=== PATIENT | female | born 1985 | race Caucasian/White ===

== ENCOUNTER 2017-06-06 11:02 | Day surgery (SDC) | payer MEDICAID ==
[~2017-06-06 11:02] MED LIST: Lactated Ringers 1,000 ML IV SCH; Sodium Chloride 0.9% 5 ML Syringe FLUSH PRN
[2017-06-06] MEDS ORDERED: Propofol 200 MG/20 ML SDV ONE (11:07)
[2017-06-06] MEDS ORDERED: Propofol 200 MG/20 ML SDV IV ONE (12:09)
--- NOTE | 2017-06-06 12:11 | PCM.PN ---
- General Info Date of Service: 06/06/17 - Review of Systems Systems Review Comment:: 32 y/o female with previously diagnosed SHOAIB now has continued rectal bleeding despite treatment. Referred for colonoscopy. She is medically stable to proceed with no recent significant changes to her health status. I have discussed the proposed colonoscopy with the patient. Risks such as bleeding and GI injury discussed and she agrees to proceed. Also question of removal of chest wall cyst. History and exam consistent with infected epidermal cyst which still has some inflammation around it. Will not excise at this time but advised that if lump persists after all the inflammation has resolved then will removed the cyst in the office under local anesthesia. - Patient Data Vitals - Most Recent: Last Vital Signs Temp 98.8 F 06/06/17 11:17 Pulse 84 06/06/17 11:17 Resp 18 06/06/17 11:17 BP 107/71 06/06/17 11:17 Pulse Ox 100 06/06/17 11:17 Weight - Most Recent: 59.421 kg Lab Results Last 24 Hours: Laboratory Results - last 24 hr 06/06/17 Range/Units 11:00 Urine HCG, Qual Negative (NEGATIVE) Med Orders - Current: Current Medications Lactated Ringer's (Ringers, Lactated) 1,000 mls @ 50 mls/hr IV ASDIRECTED AIDA Last Admin: 06/06/17 11:30 Dose: 50 mls/hr Sodium Chloride (Syrex Flush) 5 ml FLUSH Q8HR PRN PRN Reason: Keep Vein Open - Problem List Review Problem List Initiated/Reviewed/Updated: Yes - My Orders Last 24 Hours: My Active Orders 06/06/17 11:00 Patient to Empty Bladder [RC] ASDIRECTED Peripheral IV Care [RC] . DIRECTED Verify Patient Consent Obtain [RC] ASDIRECTED Lactated Ringers [Ringers, Lactated] 1,000 ml IV ASDIRECTED Sodium Chloride 0.9% [Syrex Flush] 5 ml FLUSH Q8HR PRN Peripheral IV Insertion Adult [OM.PC] Routine 06/06/17 Breakfast Nothing Per Oral Diet [DIET] - Assessment Assessment:: History of Ulcerative Colitis Rectal Bleeding - Plan Plan:: Colonoscopy
--- NOTE | 2017-06-06 12:58 | PCM.OPNOTE ---
- General Post-Op/Procedure Note Date of Surgery/Procedure: 06/06/17 Operative Procedure(s): Colonoscopy with Biopsy Findings: Severe inflammation of Left colon and Rectum consistent with Ulcerative colitis. Right colon appears normal Pre Op Diagnosis: Ulcerative Colitis Post-Op Diagnosis: Same Anesthesia Technique: MAC Primary Surgeon: Janusz Coker Pathology: Colon biopsies from several locations Output, Urine Amount: 0 EBL in mLs: 5 Complications: None Condition: Good
[2017-06-06 13:10] VITALS: BP 104/73
--- NOTE | 2017-06-06 23:14 | OR ---
DATE OF SURGERY: 06/06/2017 SURGEON: Janusz Coker MD REFERRING PHYSICIAN: Inez Lemus MD PREOPERATIVE DIAGNOSIS: Ulcerative colitis. POSTOPERATIVE DIAGNOSIS: Ulcerative colitis. OPERATION PERFORMED: Colonoscopy with biopsy. INDICATIONS FOR SURGERY: This 32-year-old female with a known diagnosis of ulcerative colitis has been having some rectal bleeding and loose stools. These symptoms are despite medication, and she comes for colonoscopy. FINDINGS: The patient's rectum, sigmoid, and descending colon are acutely inflamed down to the dentate line. There are ulcerations, friable mucosa, and thickened folds consistent with ulcerative colitis. The patient's right colon and proximal transverse colon appear normal without visible signs of inflammation. No polyps or other lesions were seen during the exam. DESCRIPTION OF PROCEDURE: The patient was taken to the operating room. She was given intravenous sedation and with her in the left lateral decubitus position, digital rectal exam was performed. No rectal masses were noted. The Olympus colonoscope was inserted into the rectum and carefully the scope was advanced under direct visualization through the left transverse and right colon until the cecum was reached. Cecal acquisition was confirmed by noting the normal internal cecal anatomy including the appendiceal orifice and ileocecal valve. The light was also noted to transilluminate the abdominal wall in the right lower quadrant. After examining the cecum, the scope was slowly withdrawn sequentially re-examining the colonic segments. Random biopsies were taken during withdrawal of the scope. These biopsies were taken from the right colon. Biopsies were also taken from the descending colon, sigmoid colon, and rectum. After the exam had been completed and with no signs of any complicating process, the scope was removed and the patient was taken from the operating room in satisfactory condition. ESTIMATED BLOOD LOSS: 5 mL. COMPLICATIONS: None. PROGNOSIS: Good. /[id number]/MODL
== END 2017-06-06 13:50 ==
LOC: KA.SDS 11:02
PROVIDERS: ATTEND Surgery
DX: K52.9 Noninfective gastroenteritis and colitis, unspecified (principal); Z79.899 Other long term (current) drug therapy; Z98.890 Other specified postprocedural states; Z78.9 Other specified health status
CPT/HCPCS: 45380; 81025; J2704; J7120

== ENCOUNTER 2018-02-11 03:55 | Emergency (ER) | payer MEDICAID ==
[2018-02-11] MEDS ORDERED: Promethazine 12.5 MG in Sodium Chloride 0.9% 50 ML IV PRN (04:06)
[2018-02-11] MEDS ORDERED: Sodium Chloride 0.9% 1,000 ML IV ONE (04:07)
[2018-02-11 04:50] VITALS: BP 115/60
[2018-02-11] MEDS ORDERED: Promethazine 6.25 MG/5 ML Liquid 10 ML UD Cup PO PRN (05:25)
--- NOTE | 2018-02-11 05:29 | EDM.PDOC ---
ED HPI GENERAL MEDICAL PROBLEM - General Chief Complaint: Gastrointestinal Problem Stated Complaint: VOMITING Time Seen by Provider: 02/11/18 04:45 Source of Information: Reports: Patient, Family, RN History Limitations: Reports: No Limitations - History of Present Illness INITIAL COMMENTS - FREE TEXT/NARRATIVE: Pleasant 33-year-old female presents emergency room early this this morning with complaints of nausea vomiting over the last 24 hours. She's been taking Zofran 4 mg without relief of the symptoms. She denies any fever or chills. She is been experiencing some diarrhea but this is not unusual for her colitis. She is currently taking prednisone for Achilles tendinitis. She was started on some recent new medication by her mold stamper for her colitis. She is not had an appetite and has not been able to keep much down for food or for hydration. She denies significant amount of abdominal pain. No recent infections or illnesses presented. IV was placed she was started on 1 L of fluids and given Phenergan 12.5 mg upon my arrival. She feels the nausea has essentially resolved. She was resting and states that she feels much better. Onset Date: 01/27/18 Onset Time: 04:00 Duration: Hour(s):, Constant Location: Reports: Abdomen Quality: Reports: Ache Severity: Moderate Improves with: Reports: None. Denies: Medication (zofran) Worsens with: Reports: None Associated Symptoms: Reports: Nausea/Vomiting, Other (Diarrhea) Treatments [facility]: Reports: Other Medication(s) (Zofran) - Related Data Allergies Allergy/AdvReac Type Severity Reaction Status Date / Time No Known Drug Allergies Allergy Other Verified 02/11/18 03:57 Home Meds: Home Meds Multivitamin [Multiple Vitamins] 1 tab PO DAILY 05/31/17 [History] Mesalamine [Lialda] 4.8 gm PO 1800 02/11/18 [History] Ondansetron HCl [Ondansetron] 4 mg PO Q6H PRN 02/11/18 [History] azaTHIOprine [Azathioprine] 112.5 mg PO DAILY 02/11/18 [History] predniSONE [Prednisone] 60 mg PO DAILY 02/11/18 [History] Past Medical History HEENT History: Reports: Impaired Vision Gastrointestinal History: Reports: Other (See Below) Other Gastrointestinal History: ulcerative colitis 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 Denies: Fever, Chills, Diaphoresis HEENT: Reports: No Symptoms Respiratory: Reports: No Symptoms Cardiovascular: Reports: No Symptoms Endocrine: Reports: No Symptoms GI/Abdominal: Reports: Abdominal Pain, Anorexia, Diarrhea, Nausea, Vomiting. Denies: Hematemesis : Reports: No Symptoms Musculoskeletal: Reports: No Symptoms Skin: Reports: No Symptoms Neurological: Reports: No Symptoms Psychiatric: Reports: No Symptoms Hematologic/Lymphatic: Reports: No Symptoms Immunologic: Reports: No Symptoms ED EXAM, GI/ABD - Physical Exam Exam: See Below Exam Limited By: No Limitations General Appearance: Alert, No Apparent Distress, Thin Throat/Mouth: Normal Voice, No Airway Compromise Respiratory/Chest: Lungs Clear, Normal Breath Sounds Cardiovascular: Regular Rate, Rhythm GI/Abdominal Exam: Normal Bowel Sounds, Soft, Non-Tender, No Organomegaly, No Distention Extremities: Normal Inspection, Normal Range of Motion, No Pedal Edema, Other ( Mild right Achilles tenderness. Good push off strength. Achilles is intact) Neurological: Alert, Oriented, Normal Cognition, Normal Gait Psychiatric: Normal Affect, Normal Mood Skin Exam: Warm, Dry, Intact, Normal Color, No Rash Lymphatic: No Adenopathy Course - Vital Signs Last Recorded V/S: Last Vital Signs Temp 98.4 F 02/11/18 04:49 Pulse 75 02/11/18 04:49 Resp 18 02/11/18 04:49 BP 115/60 02/11/18 04:49 Pulse Ox 98 02/11/18 04:49 - Orders/Labs/Meds Orders: Active Orders 24 hr Category Date Time Status Promethazine [Phenergan] 12.5 mg Med 02/11/18 04:06 Active Sodium Chloride 0.9% [Normal Saline] 50 ml IV Q6H Medication Orders Promethazine HCl 12.5 mg/ (Sodium Chloride) 50.5 mls @ 200 mls/hr IV Q6H PRN PRN Reason: Nausea/Vomiting Last Admin: 02/11/18 04:30 Dose: 200 mls/hr Meds: Medications Generic Name Dose Route Start Last Admin Trade Name Anderson PRN Reason Stop Dose Admin Promethazine HCl 12.5 mg/ 50.5 mls @ 200 mls/hr 02/11/18 04:06 02/11/18 04:30 Sodium Chloride IV 200 mls/hr Q6H PRN Administration Nausea/Vomiting Discontinued Medications Generic Name Dose Route Start Last Admin Trade Name Anderson PRN Reason Stop Dose Admin Sodium Chloride 1,000 mls @ 1,500 mls/hr 02/11/18 04:07 02/11/18 04:30 Normal Saline IV 02/11/18 04:46 1,500 mls/hr .BOLUS ONE Administration - Re-Assessments/Exams Free Text/Narrative Re-Assessment/Exam: 02/11/18 05:34 1 L normal saline fluids was given, 12.5 mg IV Phenergan. Nausea is resolved no further vomiting. Patient states that she feels considerably better with the fluids and nausea medication. Patient feels that she could manage at home with how she feels now. Departure - Departure Time of Disposition: 05:35 Disposition: Home, Self-Care 01 Condition: Fair Clinical Impression: Nausea and vomiting in adult patient, Abdominal pain - Discharge Information Instructions: Gastritis, Adult, [id number], Colitis Forms: ED Department Discharge Additional Instructions: 1. Continue with oral hydration. Rest. 2. Phenergan 12.5mg q4-6 hrs for nausea/vomiting 3. Return to ER if symptoms persist. 4. F/u with Dr. Manzano next week for check-up - My Orders Last 24 Hours: My Active Orders 02/11/18 04:06 Promethazine [Phenergan] 12.5 mg Sodium Chloride 0.9% [Normal Saline] 50 ml IV Q6H - Assessment/Plan Last 24 Hours: My Active Orders 02/11/18 04:06 Promethazine [Phenergan] 12.5 mg Sodium Chloride 0.9% [Normal Saline] 50 ml IV Q6H Assessment:: Nausea and vomiting, resolved History of colitis Right Achilles tendinitis, currently on prednisone. Plan: Patient is feeling significantly better at this time with 1 L of fluids and IV Phenergan 12.5 mg. She feels a nausea and vomiting is resolved. She is not experiencing any peritoneal signs. She is managing her colitis with her current medications and recent follow-up with a mold stamper. She is currently on a prednisone for Achilles tendinitis which may also help benefit for her current colitis. She feels comfortable enough to go home and will continue with oral hydration and rest throughout the weekend. We'll discharge her home with liquid Phenergan. If her nausea and vomiting should return and is not managed I' m encouraged follow-up in the emergency room. She will plan on following up with her primary care Dr. Inez Manzano next week. Patient was discharged home with her .
== END 2018-02-11 05:25 | disposition home or self-care (01) ==
LOC: KA.ED 03:55
DX: R11.2 Nausea with vomiting, unspecified (principal); R10.9 Unspecified abdominal pain; M76.61 Achilles tendinitis, right leg; Z79.899 Other long term (current) drug therapy; F32.9 Major depressive disorder, single episode, unspecified; F41.9 Anxiety disorder, unspecified
CPT/HCPCS: 96374; 99283; A9270; J2550; J7030; J7050

== ENCOUNTER 2018-02-12 00:27 | Observation (INO) | payer MEDICAID ==
[2018-02-12] MEDS ORDERED: Morphine 2 MG/ML Syringe IVPUSH ONE (00:53)
[2018-02-12] MEDS ORDERED: Sodium Chloride 0.9% 1,000 ML IV ONE (01:15)
[2018-02-12] MEDS: Promethazine 12.5 MG in Sodium Chloride 0.9% 50 ML IV PRN ×2 (01:22→02:34)
[2018-02-12 01:33] LABS: CHLORIDE,CL 105 mmol/L (98-115); SODIUM,NA 142 mmol/L (136-145)
[2018-02-12] MEDS ORDERED: Iopamidol 612 MG/ML 75 ML Bottle IV ONE (01:33)
[2018-02-12] MEDS ORDERED: Sodium Chloride 0.9% 50 ML IV SCH (01:45)
--- NOTE | 2018-02-12 01:52 | EDM.PDOC ---
ED HPI GENERAL MEDICAL PROBLEM - General Chief Complaint: Gastrointestinal Problem Stated Complaint: n/v/abd pain Time Seen by Provider: 02/12/18 00:30 Source of Information: Reports: Patient, Family History Limitations: Reports: No Limitations - History of Present Illness INITIAL COMMENTS - FREE TEXT/NARRATIVE: 33-year-old female presents to the emergency room early this morning with increasing complaints of pain and cramping in her abdomen. She is also having persistent nausea and recurrence of vomiting. This is been going on now for 3 days. 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 Her nausea began to recur at approximately 2:00 this afternoon and persisted throughout the day into the evening. She continued to notice of pain discomfort cramping in her abdomen. She had a recurrent episode of vomiting early this morning and therefore is brought back in by her for further evaluation. She is currently taking 60 mg of prednisone and has a history of a colitis. Onset: Gradual Onset Date: 02/12/18 Onset Time: 14:00 Duration: Day(s):, Recurring Location: Reports: Abdomen Quality: Reports: Ache Severity: Severe Improves with: Reports: Medication, Rest Associated Symptoms: Reports: Loss of Appetite, Nausea/Vomiting Treatments SIEVE MAKER: Reports: Other Medication(s) (phenergan) Abdomen Pain Score (Numeric/FACES): 7 - Related Data Allergies Allergy/AdvReac Type Severity Reaction Status Date / Time No Known Drug Allergies Allergy Other Verified 02/12/18 00:36 Home Meds: Home Meds Multivitamin [Multiple Vitamins] 1 tab PO DAILY 05/31/17 [History] Mesalamine [Lialda] 4.8 gm PO 1800 02/11/18 [History] Ondansetron HCl [Ondansetron] 4 mg PO Q6H PRN 02/11/18 [History] azaTHIOprine [Azathioprine] 112.5 mg PO DAILY 02/11/18 [History] predniSONE [Prednisone] 60 mg PO DAILY 02/11/18 [History] Citalopram [Citalopram HBr] 20 mg PO DAILY 02/12/18 [History] Past Medical History HEENT History: Reports: Impaired Vision Gastrointestinal History: Reports: Other (See Below) Other Gastrointestinal History: ulcerative colitis 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 Denies: Chills HEENT: Reports: No Symptoms Respiratory: Reports: No Symptoms Cardiovascular: Reports: No Symptoms Endocrine: Reports: No Symptoms GI/Abdominal: Reports: Abdominal Pain, Bloody Stool, Nausea, Vomiting : Reports: Hematuria (menstral bleeding) Musculoskeletal: Reports: Leg Pain (achilles pain) Skin: Reports: No Symptoms Neurological: Reports: No Symptoms ED EXAM, GI/ABD - Physical Exam Exam: See Below Exam Limited By: No Limitations General Appearance: Alert, Mild Distress, Thin Head: Atraumatic Neck: Normal Inspection Respiratory/Chest: Lungs Clear Cardiovascular: Regular Rate, Rhythm GI/Abdominal Exam: Normal Bowel Sounds, Soft, Tender (mild general). No: Distended, Guarding, Rigid, Rebound Back Exam: Normal Inspection Extremities: Normal Inspection, Normal Range of Motion, No Pedal Edema, Other ( tender right achilles pain) Neurological: Alert, Oriented, Normal Cognition, No Motor/Sensory Deficits Psychiatric: Normal Affect, Depressed Mood Skin Exam: Warm, Dry, Intact, Normal Color, No Rash Lymphatic: No Adenopathy Course - Vital Signs Last Recorded V/S: Last Vital Signs Temp 99.4 F 02/12/18 00:31 Pulse 84 02/12/18 00:31 Resp 16 02/12/18 00:31 BP 112/66 02/12/18 00:31 Pulse Ox 100 02/12/18 00:31 - Orders/Labs/Meds Orders: Active Orders 24 hr Category Date Time Status Patient Status [ADT] Routine ADT 02/12/18 03:07 Ordered May Shower [RC] ASDIRECTED Care 02/12/18 03:07 Ordered Up With Assistance [RC] ASDIRECTED Care 02/12/18 03:07 Ordered Vital Signs [RC] Q4H Care 02/12/18 03:07 Ordered Regular Diet [DIET] Diet 02/12/18 Breakfast Ordered Abdomen Pelvis w Cont [CT] Stat Exams 02/12/18 00:55 Taken Acetaminophen [Tylenol] Med 02/12/18 03:07 Ordered 650 mg PO Q4H PRN Citalopram [Celexa] Med 02/12/18 09:00 Ordered 20 mg PO DAILY Docusate Sodium [Colace] Med 02/12/18 03:07 Ordered 100 mg PO DAILY PRN HYDROmorphone [Dilaudid] Med 02/12/18 03:12 Ordered 1 mg IVPUSH Q4H PRN Magnesium Hydroxide [Milk of Magnesia] Med 02/12/18 03:07 Ordered 30 ml PO BID PRN Mesalamine [Lialda] Med 02/12/18 18:00 Ordered 4.8 gm PO 1800 Multivitamin [Multiple Vitamins] Med 02/12/18 09:00 Ordered 1 tab PO DAILY Naloxone [Narcan] Med 02/12/18 03:12 Ordered 0.4 mg IVPUSH ONETIME PRN Ondansetron HCl Med 02/12/18 03:10 Ordered 4 mg PO Q6H PRN Ondansetron [Zofran] Med 02/12/18 03:14 Ordered 4 mg IVPUSH Q4H PRN Promethazine [Phenergan] 12.5 mg Med 02/12/18 00:53 Active Sodium Chloride 0.9% [Normal Saline] 50 ml IV Q6H Sodium Chloride 0.9% [Normal Saline] 50 ml Med 02/12/18 01:45 Active IV ASDIRECTED azaTHIOprine [Imuran] Med 02/12/18 09:00 Ordered 112.5 mg PO DAILY predniSONE Med 02/12/18 09:00 Ordered 60 mg PO DAILY Medication Orders Acetaminophen (Tylenol) 650 mg PO Q4H PRN PRN Reason: analgesia/fever Azathioprine (Imuran) 112.5 mg PO DAILY [facility] Citalopram Hydrobromide (Celexa) 20 mg PO DAILY AIDA Docusate Sodium (Colace) 100 mg PO DAILY PRN PRN Reason: Constipation Hydromorphone HCl (Dilaudid) 1 mg IVPUSH Q4H PRN PRN Reason: Pain Promethazine HCl 12.5 mg/ (Sodium Chloride) 50.5 mls @ 200 mls/hr IV Q6H PRN PRN Reason: Nausea/Vomiting Last Admin: 02/12/18 02:34 Dose: 200 mls/hr Admin: 02/12/18 01:22 Dose: 200 mls/hr Sodium Chloride (Normal Saline) 50 mls @ 200 mls/hr IV ASDIRECTED [facility] Last Admin: 02/12/18 02:22 Dose: 200 mls/hr Magnesium Hydroxide (Milk Of Magnesia) 30 ml PO BID PRN PRN Reason: Constipation Naloxone HCl (Narcan) 0.4 mg IVPUSH ONETIME PRN PRN Reason: Respiratory Depression Non-Formulary Medication (Mesalamine [Lialda]) 4.8 gm PO 1800 [facility] Non-Formulary Medication (Multivitamin [Multiple Vitamins]) 1 tab PO DAILY [facility] Non-Formulary Medication (Ondansetron Hcl) 4 mg PO Q6H PRN PRN Reason: Nausea Ondansetron HCl (Zofran) 4 mg IVPUSH Q4H PRN PRN Reason: Nausea/Vomiting Prednisone (Prednisone) 60 mg PO DAILY [facility] Labs: Laboratory Tests 02/12/18 02/12/18 Range/Units 01:05 01:05 WBC 10.2 H (5.0-10.0) 10^3/uL RBC 4.33 (3.80-5.50) 10^6/uL Hgb 12.0 (12.0-16.0) g/dL Hct 36.0 L (37.0-47.0) % MCV 83.0 (82.0-92.0) fL MCH 27.7 (27.0-31.0) pg MCHC 33.3 (32.0-36.0) g/dL RDW 12.6 (11.5-14.5) % Plt Count 425 H D (150-300) 10^3/uL MPV 5.9 L (7.4-10.4) fL Neut % (Auto) 71.7 H (50.0-70.0) % Lymph % (Auto) 17.1 L (20.0-40.0) % [place] % (Auto) 9.1 H (2.0-8.0) % Eos % (Auto) 1.4 (1.0-3.0) % Baso % (Auto) 0.7 (0.0-1.0) % Neut # (Auto) 7.4 H (2.5-7.0) 10^3/uL Lymph # (Auto) 1.7 (1.0-4.0) 10^3/uL [place] # (Auto) 0.9 H (0.1-0.8) 10^3/uL Eos # (Auto) 0.1 (0.1-0.3) 10^3/uL Baso # (Auto) 0.1 (0.0-0.1) 10^3/uL Sodium 142 (136-145) mmol/L Potassium 3.4 (3.3-5.3) mmol/L Chloride 105 (98-115) mmol/L Carbon Dioxide 27.6 (21.0-32.0) mmol/L BUN 11 (6-25) mg/dL Creatinine 0.69 (0.51-1.17) mg/dL Est Cr Clr Drug Dosing 90.00 mL/min Estimated GFR (MDRD) > 60 mL/min Glucose 84 (70-110) mg/dL Calcium 8.8 (8.7-10.3) mg/dL HCG, Qual Negative (NEGATIVE) Meds: Medications Generic Name Dose Route Start Last Admin Trade Name Freq PRN Reason Stop Dose Admin Acetaminophen 650 mg 02/12/18 03:07 Tylenol PO Q4H PRN analgesia/fever Azathioprine 112.5 mg 02/12/18 09:00 Imuran PO DAILY [facility] Citalopram Hydrobromide 20 mg 02/12/18 09:00 Celexa PO DAILY A[facility] Docusate Sodium 100 mg 02/12/18 03:07 Colace PO DAILY PRN Constipation Hydromorphone HCl 1 mg 02/12/18 03:12 Dilaudid IVPUSH Q4H PRN Pain Promethazine HCl 12.5 mg/ 50.5 mls @ 200 mls/hr 02/12/18 00:53 02/12/18 02:34 Sodium Chloride IV 200 mls/hr Q6H PRN Administration Nausea/Vomiting Sodium Chloride 50 mls @ 200 mls/hr 02/12/18 01:45 02/12/18 02:22 Normal Saline IV 200 mls/hr ASDIRECTED AIDA Administration Magnesium Hydroxide 30 ml 02/12/18 03:07 Milk Of Magnesia PO BID PRN Constipation Naloxone HCl 0.4 mg 02/12/18 03:12 Narcan IVPUSH ONETIME PRN Respiratory Depression Non-Formulary Medication 4.8 gm 02/12/18 18:00 Mesalamine [Lialda] PO 1800 [facility] Non-Formulary Medication 1 tab 02/12/18 09:00 Multivitamin [Multiple Vitamins] PO DAILY [facility] Non-Formulary Medication 4 mg 02/12/18 03:10 Ondansetron Hcl PO Q6H PRN Nausea Ondansetron HCl 4 mg 02/12/18 03:14 Zofran IVPUSH Q4H PRN Nausea/Vomiting Prednisone 60 mg 02/12/18 09:00 Prednisone PO DAILY [facility] Discontinued Medications Generic Name Dose Route Start Last Admin Trade Name Freq PRN Reason Stop Dose Admin Hydromorphone HCl 2 mg 02/12/18 02:12 02/12/18 02:24 Dilaudid IVPUSH 02/12/18 02:13 2 mg ONETIME ONE Administration Sodium Chloride 1,000 mls @ 1,000 mls/hr 02/12/18 01:15 02/12/18 01:19 Normal Saline IV 02/12/18 02:14 1,000 mls/hr .BOLUS ONE Administration Iopamidol 75 ml 02/12/18 01:33 02/12/18 02:22 Isovue-300 (61%) IV 02/12/18 01:34 75 ml ONETIME ONE Administration Morphine Sulfate 2 mg 02/12/18 00:53 02/12/18 01:20 Morphine IVPUSH 02/12/18 00:54 2 mg ONETIME ONE Administration - Re-Assessments/Exams Free Text/Narrative Re-Assessment/Exam: 02/12/18 01:52 1 L normal saline running at this time. Patient was given 12.5 mg as of Phenergan. Patient was taken to CT scanner Departure - Departure Time of Disposition: 03:17 Disposition: Refer to Observation Condition: Fair Clinical Impression: Intractable abdominal pain, Colitis, nonspecific - Discharge Information Referrals: Inez Cisse MD [Primary Care Provider] - Forms: ED Department Discharge - Problem List Review Problem List Initiated/Reviewed/Updated: Yes - My Orders Last 24 Hours: My Active Orders 02/12/18 00:53 Promethazine [Phenergan] 12.5 mg Sodium Chloride 0.9% [Normal Saline] 50 ml IV Q6H 02/12/18 00:55 Abdomen Pelvis w Cont [CT] Stat 02/12/18 01:45 Sodium Chloride 0.9% [Normal Saline] 50 ml IV ASDIRECTED 02/12/18 03:07 Patient Status [ADT] Routine May Shower [RC] ASDIRECTED Up With Assistance [RC] ASDIRECTED Vital Signs [RC] Q4H Acetaminophen [Tylenol] 650 mg PO Q4H PRN Docusate Sodium [Colace] 100 mg PO DAILY PRN Magnesium Hydroxide [Milk of Magnesia] 30 ml PO BID PRN 02/12/18 03:10 Ondansetron HCl 4 mg PO Q6H PRN 02/12/18 03:12 HYDROmorphone [Dilaudid] 1 mg IVPUSH Q4H PRN Naloxone [Narcan] 0.4 mg IVPUSH ONETIME PRN 02/12/18 03:14 Ondansetron [Zofran] 4 mg IVPUSH Q4H PRN 02/12/18 09:00 Citalopram [Celexa] 20 mg PO DAILY Multivitamin [Multiple Vitamins] 1 tab PO DAILY azaTHIOprine [Imuran] 112.5 mg PO DAILY predniSONE 60 mg PO DAILY 02/12/18 18:00 Mesalamine [Lialda] 4.8 gm PO 1800 02/12/18 Breakfast Regular Diet [DIET] - Assessment/Plan Last 24 Hours: My Active Orders 02/12/18 00:53 Promethazine [Phenergan] 12.5 mg Sodium Chloride 0.9% [Normal Saline] 50 ml IV Q6H 02/12/18 00:55 Abdomen Pelvis w Cont [CT] Stat 02/12/18 01:45 Sodium Chloride 0.9% [Normal Saline] 50 ml IV ASDIRECTED 02/12/18 03:07 Patient Status [ADT] Routine May Shower [RC] ASDIRECTED Up With Assistance [RC] ASDIRECTED Vital Signs [RC] Q4H Acetaminophen [Tylenol] 650 mg PO Q4H PRN Docusate Sodium [Colace] 100 mg PO DAILY PRN Magnesium Hydroxide [Milk of Magnesia] 30 ml PO BID PRN 02/12/18 03:10 Ondansetron HCl 4 mg PO Q6H PRN 02/12/18 03:12 HYDROmorphone [Dilaudid] 1 mg IVPUSH Q4H PRN Naloxone [Narcan] 0.4 mg IVPUSH ONETIME PRN 02/12/18 03:14 Ondansetron [Zofran] 4 mg IVPUSH Q4H PRN 02/12/18 09:00 Citalopram [Celexa] 20 mg PO DAILY Multivitamin [Multiple Vitamins] 1 tab PO DAILY azaTHIOprine [Imuran] 112.5 mg PO DAILY predniSONE 60 mg PO DAILY 02/12/18 18:00 Mesalamine [Lialda] 4.8 gm PO 1800 02/12/18 Breakfast Regular Diet [DIET] Assessment:: Intractable abdominal pain Persistent nausea and vomiting Colitis, gastroenteritis Plan: Plan due to the patient not being able to tolerate outpatient treatment and experiencing continued intractable abdominal pain, nausea and vomiting and 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 She's had 2 L of fluids currently in the last 24 hours we'll leave her saline lock. If nausea and vomiting persist will run normal saline at 75 mL an hour. Order Dilaudid IV 1 mg every 4 hours when necessary for pain and Zofran for nausea. Please use this ER note as her admission H&P
[2018-02-12] MEDS ORDERED: HYDROmorphone 2 MG/ML SDV IVPUSH ONE (02:12)
[2018-02-12] MEDS ORDERED: Acetaminophen 325 MG Tab PO PRN (03:07)
[2018-02-12] MEDS ORDERED: Magnesium Hydroxide 400 MG/5 ML Susp 30 ML Cup PO PRN (03:07)
[2018-02-12] MEDS ORDERED: Docusate Sodium 100 MG Cap PO PRN (03:07)
[2018-02-12] MEDS ORDERED: Non-Formulary Medication 1 Each (Ondansetron Hcl 4 MG) PO PRN (03:10)
[2018-02-12] MEDS ORDERED: Naloxone 0.4 MG/ML Syringe IVPUSH PRN (03:12)
[2018-02-12] MEDS ORDERED: HYDROmorphone 1 MG/ML Syringe IVPUSH PRN (03:12)
[2018-02-12] MEDS ORDERED: Ondansetron 4 MG/2 ML SDV IVPUSH PRN (03:14)
[2018-02-12] MEDS ORDERED: Citalopram 20 MG Tab PO SCH (09:00)
[2018-02-12] MEDS ORDERED: MULTIVITAMIN PO SCH (09:00)
[2018-02-12] MEDS ORDERED: predniSONE 20 MG Tab PO SCH (09:00)
[2018-02-12 14:41] VITALS: BP 105/71
--- NOTE | 2018-02-12 15:47 | PCM.PN ---
- General Info Date of Service: 02/12/18 Admission Dx/Problem (Free Text): abdominal pain nausea and vomiting Functional Status: Reports: Pain Controlled, Ambulating Pain Score: 0 - Review of Systems General: Reports: No Symptoms HEENT: Reports: No Symptoms Pulmonary: Reports: No Symptoms Cardiovascular: Reports: No Symptoms Gastrointestinal: Reports: Abdominal Pain (improved. ). Denies: Nausea, Vomiting Genitourinary: Reports: No Symptoms Musculoskeletal: Reports: No Symptoms Skin: Reports: No Symptoms Neurological: Reports: No Symptoms, Other (mild lightheaded with ambulation) Psychiatric: Reports: No Symptoms - Patient Data Vitals - Most Recent: Last Vital Signs Temp 97 F 02/12/18 14:40 Pulse 72 02/12/18 14:40 Resp 14 02/12/18 14:40 BP 105/71 02/12/18 14:40 Pulse Ox 97 02/12/18 14:40 Weight - Most Recent: 126 lb 8 oz I&O - Last 24 Hours: Intake & Output 02/12/18 02/12/18 02/12/18 06:59 14:59 22:59 Intake Total 1152 300 Output Total 300 Balance 852 300 Lab Results Last 24 Hours: Laboratory Results - last 24 hr 02/12/18 02/12/18 02/12/18 Range/Units 01:05 01:05 03:30 WBC 10.2 H (5.0-10.0) 10^3/uL RBC 4.33 (3.80-5.50) 10^6/uL Hgb 12.0 (12.0-16.0) g/dL Hct 36.0 L (37.0-47.0) % MCV 83.0 (82.0-92.0) fL MCH 27.7 (27.0-31.0) pg MCHC 33.3 (32.0-36.0) g/dL RDW 12.6 (11.5-14.5) % Plt Count 425 H D (150-300) 10^3/uL MPV 5.9 L (7.4-10.4) fL Neut % (Auto) 71.7 H (50.0-70.0) % Lymph % (Auto) 17.1 L (20.0-40.0) % [place] % (Auto) 9.1 H (2.0-8.0) % Eos % (Auto) 1.4 (1.0-3.0) % Baso % (Auto) 0.7 (0.0-1.0) % Neut # (Auto) 7.4 H (2.5-7.0) 10^3/uL Lymph # (Auto) 1.7 (1.0-4.0) 10^3/uL [place] # (Auto) 0.9 H (0.1-0.8) 10^3/uL Eos # (Auto) 0.1 (0.1-0.3) 10^3/uL Baso # (Auto) 0.1 (0.0-0.1) 10^3/uL Sodium 142 (136-145) mmol/L Potassium 3.4 (3.3-5.3) mmol/L Chloride 105 (98-115) mmol/L Carbon Dioxide 27.6 (21.0-32.0) mmol/L BUN 11 (6-25) mg/dL Creatinine 0.69 (0.51-1.17) mg/dL Est Cr Clr Drug Dosing 90.00 mL/min Estimated GFR (MDRD) > 60 mL/min Glucose 84 (70-110) mg/dL Calcium 8.8 (8.7-10.3) mg/dL HCG, Qual Negative (NEGATIVE) Specimen Type Urincc Urine Color Yellow (YELLOW) Urine Appearance Slightly cloudy H (CLEAR) Urine pH 5.0 (5.0-9.0) Ur Specific [place] 1.010 (1.005-1.030) Urine Protein Negative (NEGATIVE) mg/dL Urine Glucose (UA) Negative (NEGATIVE) mg/dL Urine Ketones 40 H (NEGATIVE) mg/dL Urine Occult Blood Moderate H (NEGATIVE) Urine Nitrite Negative (NEGATIVE) Urine Bilirubin Negative (NEGATIVE) Urine Urobilinogen 0.2 (0.2-1.0) E.U./dL Ur Leukocyte Esterase Trace H (NEGATIVE) Urine RBC 0-5 /HPF Urine WBC 50-75 H /HPF Ur Epithelial Cells Few /LPF Urine Bacteria Few (NONE TO FEW) /HPF Med Orders - Current: Current Medications Acetaminophen (Tylenol) 650 mg PO Q4H PRN PRN Reason: analgesia/fever Last Admin: 02/12/18 08:36 Dose: 650 mg Azathioprine (Imuran) 112.5 mg PO DAILY [facility] Last Admin: 02/12/18 11:51 Dose: Not Given Citalopram Hydrobromide (Celexa) 20 mg PO DAILY [facility] Last Admin: 02/12/18 08:31 Dose: 20 mg Docusate Sodium (Colace) 100 mg PO DAILY PRN PRN Reason: Constipation Hydromorphone HCl (Dilaudid) 1 mg IVPUSH Q4H PRN PRN Reason: Pain Promethazine HCl 12.5 mg/ (Sodium Chloride) 50.5 mls @ 200 mls/hr IV Q6H PRN PRN Reason: Nausea/Vomiting Last Admin: 02/12/18 02:34 Dose: 200 mls/hr Sodium Chloride (Normal Saline) 50 mls @ 200 mls/hr IV ASDIRECTED [facility] Last Admin: 02/12/18 02:22 Dose: 200 mls/hr Magnesium Hydroxide (Milk Of Magnesia) 30 ml PO BID PRN PRN Reason: Constipation Naloxone HCl (Narcan) 0.4 mg IVPUSH ONETIME PRN PRN Reason: Respiratory Depression Non-Formulary Medication (Mesalamine [Lialda]) 4.8 gm PO 1800 [facility] Non-Formulary Medication (Multivitamin [Multiple Vitamins]) 1 tab PO DAILY [facility] Last Admin: 02/12/18 11:51 Dose: Not Given Non-Formulary Medication (Ondansetron Hcl) 4 mg PO Q6H PRN PRN Reason: Nausea Ondansetron HCl (Zofran) 4 mg IVPUSH Q4H PRN PRN Reason: Nausea/Vomiting Prednisone (Prednisone) 60 mg PO DAILY [facility] Last Admin: 02/12/18 08:30 Dose: 60 mg Discontinued Medications Hydromorphone HCl (Dilaudid) 2 mg IVPUSH ONETIME ONE Stop: 02/12/18 02:13 Last Admin: 02/12/18 02:24 Dose: 2 mg Sodium Chloride (Normal Saline) 1,000 mls @ 1,000 mls/hr IV .BOLUS ONE Stop: 02/12/18 02:14 Last Admin: 02/12/18 01:19 Dose: 1,000 mls/hr Iopamidol (Isovue-300 (61%)) 75 ml IV ONETIME ONE Stop: 02/12/18 01:34 Last Admin: 02/12/18 02:22 Dose: 75 ml Morphine Sulfate (Morphine) 2 mg IVPUSH ONETIME ONE Stop: 02/12/18 00:54 Last Admin: 02/12/18 01:20 Dose: 2 mg - Exam General: Alert, Oriented HEENT: Pupils Equal, EOMI Neck: Supple Lungs: Clear to Auscultation, Normal Respiratory Effort Cardiovascular: Regular Rate, Regular Rhythm GI/Abdominal Exam: Normal Bowel Sounds, Soft, Non-Tender Extremities: Normal Inspection, No Pedal Edema Skin: Warm, Dry, Intact Neurological: No New Focal Deficit Psy/Mental Status: Alert, Normal Affect, Normal Mood - Problem List Review Problem List Initiated/Reviewed/Updated: Yes - My Orders Last 24 Hours: My Active Orders 02/12/18 00:53 Promethazine [Phenergan] 12.5 mg Sodium Chloride 0.9% [Normal Saline] 50 ml IV Q6H 02/12/18 00:55 Abdomen Pelvis w Cont [CT] Stat 02/12/18 01:45 Sodium Chloride 0.9% [Normal Saline] 50 ml IV ASDIRECTED 02/12/18 03:07 Patient Status [ADT] Routine May Shower [RC] ASDIRECTED Up With Assistance [RC] ASDIRECTED Vital Signs [RC] 0300,0700,1100,1500,1900,2300 Acetaminophen [Tylenol] 650 mg PO Q4H PRN Docusate Sodium [Colace] 100 mg PO DAILY PRN Magnesium Hydroxide [Milk of Magnesia] 30 ml PO BID PRN 02/12/18 03:10 Ondansetron HCl 4 mg PO Q6H PRN 02/12/18 03:12 HYDROmorphone [Dilaudid] 1 mg IVPUSH Q4H PRN Naloxone [Narcan] 0.4 mg IVPUSH ONETIME PRN 02/12/18 03:14 Ondansetron [Zofran] 4 mg IVPUSH Q4H PRN 02/12/18 07:12 Resuscitation Status Routine 02/12/18 09:00 Citalopram [Celexa] 20 mg PO DAILY Multivitamin [Multiple Vitamins] 1 tab PO DAILY azaTHIOprine [Imuran] 112.5 mg PO DAILY predniSONE 60 mg PO DAILY 02/12/18 18:00 Mesalamine [Lialda] 4.8 gm PO 1800 02/12/18 Breakfast Regular Diet [DIET] - Assessment Assessment:: abdominal pain nausea and vomiting colitis - Plan Plan:: 1. D/c to home today. 2. Light activity allowed. 3. Continue with home meds. 4. F/u with Dr. Witt this week.
--- NOTE | 2018-02-12 15:49 | PCM.DCSUM1 ---
Discharge Summary - Discharge Data Discharge Date: 02/12/18 Discharge Disposition: Home, Self-Care 01 Condition: Good - Patient Instructions Diet: Usual Diet as Tolerated Activity: As Tolerated, Rest and Relax Today Driving: May Drive Today Showering/Bathing: May Shower Notify Provider of: Fever, Increased Pain, Nausea and/or Vomiting - Discharge Plan Home Medications: Home Meds Multivitamin [Multiple Vitamins] 1 tab PO DAILY 05/31/17 [History] Mesalamine [Lialda] 4.8 gm PO 1800 02/11/18 [History] Ondansetron HCl [Ondansetron] 4 mg PO Q6H PRN 02/11/18 [History] azaTHIOprine [Azathioprine] 112.5 mg PO DAILY 02/11/18 [History] predniSONE [Prednisone] 60 mg PO DAILY 02/11/18 [History] Citalopram [Citalopram HBr] 20 mg PO DAILY 02/12/18 [History] Forms: ED Department Discharge Referrals: Inez Cisse MD [Primary Care Provider] - - Patient Data Vitals - Most Recent: Last Vital Signs Temp 97 F 02/12/18 14:40 Pulse 72 02/12/18 14:40 Resp 14 02/12/18 14:40 BP 105/71 02/12/18 14:40 Pulse Ox 97 02/12/18 14:40 Weight - Most Recent: 126 lb 8 oz I&O - Last 24 hours: Intake & Output 02/12/18 02/12/18 02/12/18 06:59 14:59 22:59 Intake Total 1152 300 Output Total 300 Balance 852 300 Lab Results - Last 24 hrs: Laboratory Results - last 24 hr 02/12/18 02/12/18 02/12/18 Range/Units 01:05 01:05 03:30 WBC 10.2 H (5.0-10.0) 10^3/uL RBC 4.33 (3.80-5.50) 10^6/uL Hgb 12.0 (12.0-16.0) g/dL Hct 36.0 L (37.0-47.0) % MCV 83.0 (82.0-92.0) fL MCH 27.7 (27.0-31.0) pg MCHC 33.3 (32.0-36.0) g/dL RDW 12.6 (11.5-14.5) % Plt Count 425 H D (150-300) 10^3/uL MPV 5.9 L (7.4-10.4) fL Neut % (Auto) 71.7 H (50.0-70.0) % Lymph % (Auto) 17.1 L (20.0-40.0) % [place] % (Auto) 9.1 H (2.0-8.0) % Eos % (Auto) 1.4 (1.0-3.0) % Baso % (Auto) 0.7 (0.0-1.0) % Neut # (Auto) 7.4 H (2.5-7.0) 10^3/uL Lymph # (Auto) 1.7 (1.0-4.0) 10^3/uL [place] # (Auto) 0.9 H (0.1-0.8) 10^3/uL Eos # (Auto) 0.1 (0.1-0.3) 10^3/uL Baso # (Auto) 0.1 (0.0-0.1) 10^3/uL Sodium 142 (136-145) mmol/L Potassium 3.4 (3.3-5.3) mmol/L Chloride 105 (98-115) mmol/L Carbon Dioxide 27.6 (21.0-32.0) mmol/L BUN 11 (6-25) mg/dL Creatinine 0.69 (0.51-1.17) mg/dL Est Cr Clr Drug Dosing 90.00 mL/min Estimated GFR (MDRD) > 60 mL/min Glucose 84 (70-110) mg/dL Calcium 8.8 (8.7-10.3) mg/dL HCG, Qual Negative (NEGATIVE) Specimen Type Urincc Urine Color Yellow (YELLOW) Urine Appearance Slightly cloudy H (CLEAR) Urine pH 5.0 (5.0-9.0) Ur Specific [place] 1.010 (1.005-1.030) Urine Protein Negative (NEGATIVE) mg/dL Urine Glucose (UA) Negative (NEGATIVE) mg/dL Urine Ketones 40 H (NEGATIVE) mg/dL Urine Occult Blood Moderate H (NEGATIVE) Urine Nitrite Negative (NEGATIVE) Urine Bilirubin Negative (NEGATIVE) Urine Urobilinogen 0.2 (0.2-1.0) E.U./dL Ur Leukocyte Esterase Trace H (NEGATIVE) Urine RBC 0-5 /HPF Urine WBC 50-75 H /HPF Ur Epithelial Cells Few /LPF Urine Bacteria Few (NONE TO FEW) /HPF Med Orders - Current: Current Medications Acetaminophen (Tylenol) 650 mg PO Q4H PRN PRN Reason: analgesia/fever Last Admin: 02/12/18 08:36 Dose: 650 mg Azathioprine (Imuran) 112.5 mg PO DAILY [facility] Last Admin: 02/12/18 11:51 Dose: Not Given Citalopram Hydrobromide (Celexa) 20 mg PO DAILY [facility] Last Admin: 02/12/18 08:31 Dose: 20 mg Docusate Sodium (Colace) 100 mg PO DAILY PRN PRN Reason: Constipation Hydromorphone HCl (Dilaudid) 1 mg IVPUSH Q4H PRN PRN Reason: Pain Promethazine HCl 12.5 mg/ (Sodium Chloride) 50.5 mls @ 200 mls/hr IV Q6H PRN PRN Reason: Nausea/Vomiting Last Admin: 02/12/18 02:34 Dose: 200 mls/hr Sodium Chloride (Normal Saline) 50 mls @ 200 mls/hr IV ASDIRECTED [facility] Last Admin: 02/12/18 02:22 Dose: 200 mls/hr Magnesium Hydroxide (Milk Of Magnesia) 30 ml PO BID PRN PRN Reason: Constipation Naloxone HCl (Narcan) 0.4 mg IVPUSH ONETIME PRN PRN Reason: Respiratory Depression Non-Formulary Medication (Mesalamine [Lialda]) 4.8 gm PO 1800 [facility] Non-Formulary Medication (Multivitamin [Multiple Vitamins]) 1 tab PO DAILY [facility] Last Admin: 02/12/18 11:51 Dose: Not Given Non-Formulary Medication (Ondansetron Hcl) 4 mg PO Q6H PRN PRN Reason: Nausea Ondansetron HCl (Zofran) 4 mg IVPUSH Q4H PRN PRN Reason: Nausea/Vomiting Prednisone (Prednisone) 60 mg PO DAILY [facility] Last Admin: 02/12/18 08:30 Dose: 60 mg Discontinued Medications Hydromorphone HCl (Dilaudid) 2 mg IVPUSH ONETIME ONE Stop: 02/12/18 02:13 Last Admin: 02/12/18 02:24 Dose: 2 mg Sodium Chloride (Normal Saline) 1,000 mls @ 1,000 mls/hr IV .BOLUS ONE Stop: 02/12/18 02:14 Last Admin: 02/12/18 01:19 Dose: 1,000 mls/hr Iopamidol (Isovue-300 (61%)) 75 ml IV ONETIME ONE Stop: 02/12/18 01:34 Last Admin: 02/12/18 02:22 Dose: 75 ml Morphine Sulfate (Morphine) 2 mg IVPUSH ONETIME ONE Stop: 02/12/18 00:54 Last Admin: 02/12/18 01:20 Dose: 2 mg
[2018-02-12] MEDS ORDERED: MESALAMINE 4.8 GM PO SCH (18:00)
== END 2018-02-12 16:40 | disposition home or self-care (01) ==
LOC: KA.ED 00:27 → KA.MS 03:20
PROVIDERS: ADMIT Physician Assistant; ATTEND Internal Medicine
DX: K52.9 Noninfective gastroenteritis and colitis, unspecified (principal); Z79.899 Other long term (current) drug therapy
CPT/HCPCS: 74177; 80048; 81001; 84703; 85025; 96361; 96365; 96375; 99285; A9270; G0378; J1170; J2270; J2550; J7030; J7050; Q9967

== ENCOUNTER 2019-05-18 17:38 | Emergency (ER) | payer MEDICAID ==
[2019-05-18 17:58] VITALS: BP 126/88
--- NOTE | 2019-05-18 18:22 | EDM.PDOC ---
ED HPI GENERAL MEDICAL PROBLEM - General Chief Complaint: General Stated Complaint: FEVER Time Seen by Provider: 05/18/19 17:58 Source of Information: Reports: Patient, Significant Other History Limitations: Reports: No Limitations - History of Present Illness INITIAL COMMENTS - FREE TEXT/NARRATIVE: Patient presents with fever for 3 days up to 103-4 persistently but seems a bit better today. Tylenol would only bring it down to 100. She didn't have access to a thermometer today as they were camping. She has noticed dark urine and has had dysuria starting one day after the fever started. She is nursing a 1- month-old, vaginal delivery. Denies vaginal redness, pain or drainage. Has not had post- doctor visit yet; scheduled in two weeks. Denies cough. Just today has a slight sore throat. Treatments [employer]: Reports: Acetaminophen Right Posterior Thoracic Pain Score (Numeric/FACES): 3 - Related Data Allergies Allergy/AdvReac Type Severity Reaction Status Date / Time No Known Drug Allergies Allergy Other Verified 05/18/19 17:58 Home Meds: Home Meds Multivitamin [Multiple Vitamins] 1 tab PO DAILY 05/31/17 [History] Mesalamine [Lialda] 4.8 gm PO 1800 02/11/18 [History] Citalopram [Citalopram HBr] 20 mg PO DAILY 02/12/18 [History] Adalimumab [Humira Crohn's] 40 mg SQ Q14D 05/18/19 [History] Azithromycin [Zithromax] 250 mg PO DAILY 05/18/19 [History] Esomeprazole Magnesium [Nexium] 40 mg PO ACBREAKFAST 05/18/19 [History] Past Medical History HEENT History: Reports: Impaired Vision Gastrointestinal History: Reports: Other (See Below) Other Gastrointestinal History: ulcerative colitis OUTDOOR GUIDE History: Reports: Psychiatric History: Reports: Anxiety, Depression - Past Surgical History HEENT Surgical History: Reports: None GI Surgical History: Reports: Colonoscopy Social & Family History - Family History Family Medical History: Noncontributory - Tobacco Use Smoking Status *Q: Never Smoker Second Hand Smoke Exposure: No - Caffeine Use Caffeine Use: Reports: Coffee, Tea - Recreational Drug Use Recreational Drug Use: No ED ROS GENERAL - Review of Systems Review Of Systems: See Below Constitutional: Reports: Fever, Chills, Decreased Appetite HEENT: Reports: Throat Pain. Denies: Ear Discharge, Ear Pain, Throat Swelling Respiratory: Denies: Shortness of Breath, Cough Cardiovascular: Denies: Chest Pain GI/Abdominal: Reports: Nausea (mild, occasional), Other (has ulcerative colitis) . Denies: Abdominal Pain, Constipation, Diarrhea, Vomiting : Reports: Dysuria. Denies: Discharge, Flank Pain Musculoskeletal: Reports: Other (general aches) Skin: Reports: No Symptoms Neurological: Denies: Confusion, Headache, Trouble Speaking, Difficulty Walking Psychiatric: Denies: Agitation, Anxiety, Confusion ED EXAM, GENERAL - Physical Exam Exam: See Below Exam Limited By: No Limitations General Appearance: Alert, WD/WN, No Apparent Distress Eye Exam: Bilateral Eye: EOMI, Normal Inspection, PERRL Ears: Normal External Exam, Normal Canal, Hearing Grossly Normal, Normal TMs Nose: Normal Inspection, No Blood Throat/Mouth: Normal Lips, Normal Voice, No Airway Compromise, Other (throat looks quite normal just slight erythema; no swelling) Head: Atraumatic, Normocephalic Neck: Normal Inspection, Supple, Non-Tender, Full Range of Motion Respiratory/Chest: No Respiratory Distress, Lungs Clear, Normal Breath Sounds, No Accessory Muscle Use Cardiovascular: Regular Rate, Rhythm, No Murmur GI/Abdominal: Normal Bowel Sounds, Soft, No Organomegaly, No Distention, Tender (mild suprapubic). No: Distended, Guarding, Rigid Back Exam: Normal Inspection, Full Range of Motion. No: CVA Tenderness (L), CVA Tenderness (R) Extremities: Normal Inspection, Normal Range of Motion Neurological: Alert, Oriented, Normal Cognition, No Motor/Sensory Deficits Psychiatric: Normal Affect, Normal Mood Skin Exam: Warm, Dry, Intact, Normal Color, No Rash Course - Vital Signs Last Recorded V/S: Last Vital Signs Temp 99.2 F 05/18/19 17:45 Pulse 103 H 05/18/19 17:45 Resp 20 05/18/19 17:45 BP 126/88 05/18/19 17:45 Pulse Ox 94 L 05/18/19 17:45 - Orders/Labs/Meds Orders: Active Orders 24 hr Category Date Time Status CULTURE STREP A CONFIRMATION [RM] Stat Lab 05/18/19 18:23 Results CULTURE URINE [] Stat Lab 05/18/19 18:46 Ordered STREP SCRN A RAPID W CULT CONF [RM] Stat Lab 05/18/19 18:16 Ordered Labs: Laboratory Tests 05/18/19 05/18/19 05/18/19 Range/Units 18:20 18:23 18:23 WBC 8.42 (5.00-10.00) 10^3/uL RBC 3.77 L (3.80-5.50) 10^6/uL Hgb 11.0 L (12.0-16.0) g/dL Hct 33.3 L (37.0-47.0) % MCV 88.3 D (82.0-92.0) fL MCH 29.2 (27.0-31.0) pg MCHC 33.0 (32.0-36.0) g/dL RDW 12.0 (11.5-14.5) % Plt Count 144 L (150-400) 10^3/uL MPV 8.8 (7.4-10.4) fL Immature Gran % (Auto) 0.2 (0.0-5.0) % Neut % (Auto) 56.4 (50.0-70.0) % Lymph % (Auto) 30.3 (20.0-40.0) % [place] % (Auto) 12.9 H (2.0-8.0) % Eos % (Auto) 0.0 L (1.0-3.0) % Baso % (Auto) 0.2 (0.0-1.0) % Immature Gran # (Auto) 0.02 (0.00-0.50) 10^3/uL Neut # (Auto) 4.74 (2.50-7.00) 10^3/uL Lymph # (Auto) 2.55 (1.00-4.00) 10^3/uL [place] # (Auto) 1.09 H (0.10-0.80) 10^3/uL Eos # (Auto) 0.00 L (0.10-0.30) 10^3/uL Baso # (Auto) 0.02 (0.00-0.10) 10^3/uL Sodium 139 (136-145) mmol/L Potassium 3.5 (3.3-5.3) mmol/L Chloride 103 (98-115) mmol/L Carbon Dioxide 21.7 D (21.0-32.0) mmol/L Anion Gap 17.8 H (5-15) mmol/L BUN 14 (6-25) mg/dL Creatinine 0.85 (0.51-1.17) mg/dL Est Cr Clr Drug Dosing 72.37 mL/min Estimated GFR (MDRD) > 60 mL/min Glucose 93 (75 - 99) mg/dL Calcium 8.5 L (8.7-10.3) mg/dL C-Reactive Protein 14.0 H (0.0-0.9) mg/dL Specimen Type Urincc Urine Color Yellow (YELLOW) Urine Appearance Clear (CLEAR) Urine pH 6.5 (5.0-9.0) Ur Specific [place] 1.010 (1.005-1.030) Urine Protein 100 H (NEGATIVE) mg/dL Urine Glucose (UA) Negative (NEGATIVE) mg/dL Urine Ketones 40 H (NEGATIVE) mg/dL Urine Occult Blood Large H (NEGATIVE) Urine Nitrite Negative (NEGATIVE) Urine Bilirubin Negative (NEGATIVE) Urine Urobilinogen 0.2 (0.2-1.0) E.U./dL Ur Leukocyte Esterase Moderate H (NEGATIVE) Urine RBC 5-10 H (0-5) /HPF Urine WBC 50-75 H (0-5) /HPF Ur Epithelial Cells Occasional /LPF Urine Bacteria Many H (NONE TO FEW) /HPF Meds: Medications Discontinued Medications Generic Name Dose Route Start Last Admin Trade Name Freq PRN Reason Stop Dose Admin Ceftriaxone Sodium 1 gm 05/18/19 18:56 05/18/19 19:27 Rocephin IM 05/18/19 18:57 1 gm ONETIME ONE Administration Cephalexin 4,000 mg 05/18/19 18:57 05/18/19 19:28 Keflex PO 05/18/19 18:58 Not Given ONETIME ONE Lidocaine HCl Confirm 05/18/19 19:00 05/18/19 19:27 Xylocaine 1% Administered 05/18/19 19:01 Not Given Dose 20 ml .ROUTE .STK-MED ONE - Re-Assessments/Exams Free Text/Narrative Re-Assessment/Exam: 05/18/19 18:29 She started a Z-pack two days ago so has had 3 doses now. 05/18/19 19:09 Definite UTI. Discussed findings and also discussed preferred treatment regimen regarding with Dr. Witt. Will treat with Rocephin and Keflex. Pharmacist will meet them at pharmacy since we don't have enough cephalexin to cover until Monday. Patient discharged to home in stable condition. Departure - Departure Time of Disposition: 19:00 Disposition: Home, Self-Care 01 Condition: Good Clinical Impression: UTI (urinary tract infection) Qualifiers: Urinary tract infection type: acute cystitis Hematuria presence: with hematuria Qualified Code(s): N30.01 - Acute cystitis with hematuria - Discharge Information Instructions: Urinary Tract Infection, Adult Referrals: Inez Cisse MD [Primary Care Provider] - Forms: ED Department Discharge Additional Instructions: 1. Drink 8 cups of water daily. 2. Take the Keflex as directed, starting tomorrow at noon. 3. Followup with Dr. Witt if not improving in a couple days. 4. Check in with Dr. Witt about culture results and whether she would like you to recheck urine after antibiotic course. - My Orders Last 24 Hours: My Active Orders 05/18/19 18:16 STREP SCRN A RAPID W CULT CONF [RM] Stat 05/18/19 18:23 CULTURE STREP A CONFIRMATION [RM] Stat 05/18/19 18:46 CULTURE URINE [RM] Stat - Assessment/Plan Last 24 Hours: My Active Orders 05/18/19 18:16 STREP SCRN A RAPID W CULT CONF [RM] Stat 05/18/19 18:23 CULTURE STREP A CONFIRMATION [RM] Stat 05/18/19 18:46 CULTURE URINE [RM] Stat
[2019-05-18] MEDS ORDERED: cefTRIAXone 1 GM Vial IM ONE (18:56)
[2019-05-18] MEDS ORDERED: Cephalexin 250 MG Cap PO ONE (18:57)
[2019-05-18] MEDS ORDERED: Lidocaine 1% 20 ML MDV ONE (19:00)
[2019-05-18 19:43] LABS: SODIUM,NA 139 mmol/L (136-145)
[2019-05-18 19:44] LABS: ANION GAP 17.8 mmol/L (5-15); CHLORIDE,CL 103 mmol/L (98-115)
== END 2019-05-18 19:20 | disposition home or self-care (01) ==
LOC: KA.ED 17:38
DX: O86.22 Infection of bladder following delivery (principal); O99.345 Other mental disorders complicating the puerperium; F41.9 Anxiety disorder, unspecified; F32.9 Major depressive disorder, single episode, unspecified; Z79.899 Other long term (current) drug therapy
CPT/HCPCS: 36415; 80048; 81001; 85025; 86140; 87086; 87088; 87430; 96372; 99283; J0696; 87081

== ENCOUNTER 2023-05-02 12:28 | Day surgery (SDC) | payer MEDICAID ==
[2023-05-02] MEDS ORDERED: Propofol 200 MG/20 ML SDV IV ONE (12:29)
[2023-05-02] MEDS ORDERED: Sodium Chloride 0.9% 10 ML Syringe FLUSH PRN (13:00)
[2023-05-02] MEDS ORDERED: Lactated Ringers 1,000 ML IV SCH (13:00)
[2023-05-02] MEDS ORDERED: Propofol 200 MG/20 ML SDV ONE ×2 (13:13→14:05)
[2023-05-02] MEDS ORDERED: Acetaminophen 325 MG Tab PO ONE (15:19)
[2023-05-02 17:30] VITALS: BP 98/59; PULSE 75
== END 2023-05-02 16:06 | disposition home or self-care (01) ==
LOC: KA.SDS 12:28
PROVIDERS: ATTEND Surgery
DX: K51.911 Ulcerative colitis, unspecified with rectal bleeding (principal); K62.89 Other specified diseases of anus and rectum; K64.4 Residual hemorrhoidal skin tags; F98.8 Other specified behavioral and emotional disorders with onset usually occurring in childhood and adolescence; K21.9 Gastro-esophageal reflux disease without esophagitis; F41.8 Other specified anxiety disorders; G43.909 Migraine, unspecified, not intractable, without status migrainosus; Z79.899 Other long term (current) drug therapy
CPT/HCPCS: 00812; 81025; A9270-GY; J2704; J7120

== ENCOUNTER 2024-05-28 10:17 | Day surgery (SDC) | payer MEDICAID ==
[~2024-05-28 10:17] MED LIST changes: -Lactated Ringers 1,000 ML IV SCH; +Sodium Chloride 0.9% 10 ML Syringe FLUSH PRN; -Sodium Chloride 0.9% 5 ML Syringe FLUSH PRN
[2024-05-28 10:42] LABS: HCG QUALITATIVE,URINE NEGATIVE (NEGATIVE)
[2024-05-28] MEDS: Lactated Ringers 1,000 ML IV SCH (10:43)
[2024-05-28 13:33] VITALS: BP 112/78; PULSE 88
[2024-05-29] MEDS: Propofol 200 MG/20 ML SDV ONE (12:45)
[2024-05-29] MEDS: Midazolam 1 MG/ML 2 ML SDV ONE (12:46)
== END 2024-05-28 13:48 | disposition home or self-care (01) ==
LOC: KA.SDS 10:17
PROVIDERS: ATTEND Surgery
DX: K51.90 Ulcerative colitis, unspecified, without complications (principal); K64.9 Unspecified hemorrhoids; R19.4 Change in bowel habit
CPT/HCPCS: 00811; 45380; 81025; J2250; J2704; J7120; J3490

== ENCOUNTER 2025-09-08 17:39 | Emergency (ER) | payer MEDICAID ==
[2025-09-08] MEDS ORDERED: Sodium Chloride 0.9% 10 ML Syringe FLUSH PRN (17:53)
[2025-09-08 18:10] LABS: BASOPHILS ABSOLUTE AUTO 0.04 10^3/uL (0.00-0.10); BASOPHILS PERCENT AUTO 0.5 % (0.0-1.0); EOSINOPHILS ABSOLUTE AUTO 0.27 10^3/uL (0.10-0.30); EOSINOPHILS PERCENT AUTO 3.2 % (1.0-3.0); IMMATURE GRAN ABSOLUTE AUTO 0.02 10^3/uL (0.00-0.04); IMMATURE GRAN PERCENT AUTO 0.2 % (0.0-0.4); LYMPHOCYTES ABSOLUTE AUTO 2.94 10^3/uL (1.00-4.00); LYMPHOCYTES PERCENT AUTO 35.0 % (20.0-40.0); MEAN PLATELET VOLUME 8.4 fL (7.4-10.4); MONOCYTES ABSOLUTE AUTO 0.69 10^3/uL (0.10-0.80); MONOCYTES PERCENT AUTO 8.2 % (2.0-8.0); NEUTROPHILS ABSOLUTE AUTO 4.43 10^3/uL (2.50-7.00); NEUTROPHILS PERCENT AUTO 52.9 % (50.0-70.0); PLATELET COUNT,PLT 346 10^3/uL (150-400); RED BLOOD CELL COUNT 4.83 10^6/uL (3.80-5.50); RED CELL DISTRIBUTION WIDTH 11.7 % (11.5-14.5); WHITE BLOOD CELL COUNT,WBC 8.39 10^3/uL (5.00-10.00)
[2025-09-08 18:27] LABS: ALANINE AMINOTRANSFERASE,ALT 22 U/L (14-63); ASPARTATE AMNIOTRANSFERASE,AST 18 U/L (15-37); BILIRUBIN TOTAL 0.3 mg/dL (0.2-1.0); BLOOD UREA NITROGEN,BUN 11 mg/dL (7-18); CARBON DIOXIDE,CO2 26.2 mmol/L (21.0-32.0); CHLORIDE,CL 103 mmol/L (98-107); CREATININE 0.74 mg/dL (0.51-1.17); ESTIMATED GFR 104 mL/min (>=60); GLUCOSE RANDOM 87 mg/dL (70-140); POTASSIUM,K 3.6 mmol/L (3.5-5.1); PROTEIN TOTAL,TP 7.8 g/dL (6.4-8.2); SODIUM,NA 141 mmol/L (136-145)
[2025-09-08] MEDS: LORazepam 2 MG/ML SDV IVPUSH ONE (18:30)
[2025-09-08] MEDS: hydrALAZINE 20 MG/ML SDV IVPUSH ONE ×2 (18:39→20:39)
[2025-09-08] MEDS: hydrALAZINE 20 MG/ML SDV IV PRN (19:38)
[2025-09-08] MEDS: Iopamidol 755 Mg/ML 100 ML Bottle IV ONE (20:44)
[2025-09-08 20:47] LABS: APPEARANCE,URINE CLEAR (CLEAR); GLUCOSE,URINE NEGATIVE (NEGATIVE); OCCULT BLOOD,URINE NEGATIVE (NEGATIVE)
[2025-09-08] MEDS: Ketorolac 30 MG/ML SDV IVPUSH ONE (21:12)
[2025-09-08 22:53] VITALS: BP 130/80; PULSE 109
== END 2025-09-08 22:06 | disposition home or self-care (01) ==
LOC: KA.ED 17:39
DX: I10 Essential (primary) hypertension (principal); G44.209 Tension-type headache, unspecified, not intractable; Z79.899 Other long term (current) drug therapy
CPT/HCPCS: 70450; 70496; 70498; 80053; 81003; 84484; 85025; 85379; 86140; 93010; 96361; 96374; 96375; 96376; 99284; A9270; J0360; J1885; J2060; J7030; Q9967